=== PATIENT | male | born 2000 | race Caucasian/White ===

== ENCOUNTER 2020-02-16 12:23 | Emergency (ER) | payer OTHER, MEDICAID, SELFPAY ==
[2020-02-16 12:38] VITALS: BP 106/58; PULSE 109; RESP 20; TEMP 36.6; O2SAT 100
[2020-02-16 13:01] LABS: Bacteria Urine None Seen; RBC Urine None Seen (0-5/HPF); WBC Urine None Seen (0-5/HPF)
[2020-02-16 13:03] LABS: Appearance Urine UA CLEAR; Bilirubin Urine UA NEGATIVE (NEGATIVE); Color Urine UA YELLOW; Glucose Urine UA NEGATIVE (Negative); Ketones Urine UA TRACE (NEGATIVE); Leukocyte Esterase Urine UA NEGATIVE (NEGATIVE); Nitrite Urine UA NEGATIVE (Negative); Occult Blood Urine UA NEGATIVE (Negative); Protein Urine UA 3+ (Negative); pH Urine UA 7.5 (4.5-8.0)
[2020-02-16 13:09] LABS: Culture Indicated Urine Cult Not Indicated; Mucus Urine 1+ (Negative); Ur Creatinine Normal (Normal); Ur Specific Gravity Normal (Normal); Urine Amphetamines Positive (Negative); Urine Cocaine Negative (Negative); Urine Methamphetamines Positive (Negative); Urine Opiates Positive (Negative); Urine THC Positive (Negative); Urine pH Normal (Normal)
[2020-02-16 13:10] LABS: Urine Barbiturates Negative (Negative); Urine Benzodiazepines Negative (Negative); Urine MDMA Negative (Negative); Urine Methadone Negative (Negative); Urine Oxycodone Negative (Negative); Urine Phencyclidine Negative (Negative); Urine Tricyclic Antidepressant Negative (Negative)
[2020-02-16 13:12] LABS: Add Manual Diff / Slide Review NO; Basophils Absolute Auto 100 /uL (0-100); Basophils Percent Auto 0.8 % (0-2); Eosinophils Absolute Auto 100 /uL (0-450); Eosinophils Percent Auto 0.8 % (2-4); Hematocrit 42.4 % (41-53); Hemoglobin 14.1 g/dL (13.5-17.5); Lymphocytes Absolute Auto 2100 /uL (1100-4500); Lymphocytes Percent Auto 30.4 % (25-40); Mean Corpuscular HGB Conc 33.2 % (30-36); Mean Corpuscular Hemoglobin 29.5 PG (26-34); Mean Corpuscular Volume 88.8 fL (80-100); Monocytes Absolute Auto 700 /uL (0-900); Monocytes Percent Auto 9.7 % (3-14); Neutrophils Absolute Auto 4100 /uL (1500-7000); Neutrophils Percent Auto 58.3 % (50-75); Platelet Count 257 X10^3/uL (150-400); Red Blood Cell Count 4.77 X10^6/uL (4.5-5.9); Red Cell Distribution Width 13.3 % (11.6-14.8)
[2020-02-16 13:18] LABS: Acetaminophen < 10 ug/mL (10-30); Alanine Aminotransferase 17 IU/L (<50); Albumin 4.3 g/dL (3.5-5.0); Albumin Globulin Ratio 1.8 (1.0-2.8); Alkaline Phosphatase 52 U/L (38-126); Aspartate Aminotransferase 22 IU/L (17-59); Bilirubin Total 0.3 mg/dL (0.2-1.3); Blood Urea Nitrogen 12 mg/dL (9-20); Calcium 9.3 mg/dL (8.4-10.2); Carbon Dioxide 27 mmol/L (22-32); Chloride 106 mmol/L (98-107); Estimated Glomerular Filt Rate > 60.0 mL/min (>60); Ethanol (ETOH) < 10 mg/dL; Globulin 2.4 g/dL (1.7-4.1); Glucose 102 mg/dL (70-100); HEMOLYSIS < 15 (0-50); Potassium 4.1 mmol/L (3.4-5.1); Salicylate < 1.0 mg/dL (<20); Sodium 142 mmol/L (137-145); Total Protein 6.7 g/dL (6.3-8.2)
[2020-02-16 13:35] LABS: Free T4, Direct Thyroxine 0.95 ng/dL (0.78-2.19)
[2020-02-16 13:49] LABS: Thyroid Stimulating Hormone 0.315 uIU/mL (0.47-4.68)
[2020-02-16 14:45] VITALS: BP 117/72; PULSE 95; O2SAT 100
--- NOTE | 2020-02-16 16:21 | ED_ITS ---
HPI - Medical Clearance <Reza NunezALVARO Haines - Last Filed: 02/17/20 00:46> General Chief complaint: Medical Clearance Stated complaint: Clearance For Detox Time Seen by Provider: 02/16/20 15:24 Source: patient Mode of arrival: Ambulatory Limitations: no limitations History of Present Illness HPI Narrative: This is a 19-year-old male, smoker, who has history of addiction for substance use and requesting medical clearance before going into [facility] facility. Patient reports he has been using meth and heroin by smoking for about a year. Last use of meth and heroin 2 days ago. Patient reports this is his 3rd time trying detox. He states no certain motivator for this time and it's time to quit. Patient reports he has confirmed bed availability at [facility] and his father will take him there. Patient denies suicidal ideation or attempts. Patient denies recent travel or exposure to Covid illness and reports he has been quarantined himself at home. Patient denies history of other mental illnesses. Patient denies cough, sore throat, runny nose, chest pain, nausea/vomiting/diarrhea. Related Information Previous Rx's Medication Instructions Recorded ondansetron HCl [Zofran] 4 mg PO Q6H PRN #14 tab 02/17/20 Allergies Allergy/AdvReac Type Severity Reaction Status Date / Time No Known Drug Allergies Allergy Verified 02/16/20 12:41 Review of Systems <Reza NunezNateBenyALVARO velasquez - Last Filed: 02/17/20 00:46> Review of Systems Narrative: General: Denies fever, chills, fatigue, malaise, sweats. HEENT: Denies sinus pain, ear pain, sore throat, difficulty swallowing, dizziness. Respiratory: Denies dyspnea, cough, wheezing, hemoptysis, sputum. Cardiovascular: Denies chest pain, palpitations, orthopnea, edema. Gastrointestinal: Denies nausea, vomiting, abdominal pain, diarrhea, constipation, melena. : Denies dysuria, frequency, incontinence, hematuria, urinary retention. Musculoskeletal: Denies weakness, joint pain or bony pain. Skin: Denies rash, skin lesions, or other. Neurologic: Denies weakness, headache, numbness, change in speech, confusion, seizures, incoordination. Psychiatric: No concerning psychosocial issues. 12-point review of systems is negative except for those stated above. Patient History <ALVARO Evans - Last Filed: 02/17/20 00:46> Medical History (Updated 03/02/20 @ 00:00 by ) Substance addiction (Inactive) Social History Smoking Status: Current every day smoker Smoking Status: Current every day smoker tobacco type: cigarettes alcohol intake frequency: 0-2 drinks per day Substance Use Type: heroin and methamphetamine Exam <ALVARO Evans - Last Filed: 02/17/20 00:46> Narrative Exam Narrative: GEN: Alert, oriented x 3, thin appearing and in no acute distress. Sleeping soundly but arouse easily by verbal command. Head: Normal cephalic, atraumatic. No scalp or temporal tenderness, palpable mass or rash. EYES: Pupils are equal, round, and reactive to light and accommodation. Extraocular muscles are intact bilaterally. There is no subconjunctival hemorrhage, exudate and sclera non-icteric. ENT: Hearing grossly intact. Mucous membrane moist, no mucosal lesion. Throat without erythema, tonsillar hypertrophy or exudate. Uvula in midline, airway patent. Neck: Trachea in midline. No JVD, non-tender without lymphadenopathy. No masses or thyroid megaly. Supple, non-tender and no meningeal signs. CARDIAC: Normal regular rate and rhythm without murmurs, gallops, or rubs. No chest wall tenderness. No peripheral edema, cyanosis or pallor. Capillary refill is less than 2 seconds. RESPIRATORY: Lungs are clear to auscultate bilaterally. No cough, wheezes, rales, or rhonchi. No stridor, respiratory distress, increase work of breathing, or accessary muscle used. ABD: Abdomen soft, nontender and non-distended. No guarding or rebound tenderness to palpate. Bowel sounds are normal in all 4 quadrants. There is no palpable masses or organomegaly. EXT: Full painless ROM of all extremities with no loss of sensation, strength, effusion or edema. SKIN: Warm, dry, normal color for patient. No erythema, lesions or rash over visible areas. BACK: Nontender without deformity or crepitance. No flank tenderness. NEUROLOGICAL: Alert and oriented to place, time and person. Sensation and motor function intact bilaterally. No facial droops, dysphasia. PSYCHIATRIC: Good judgement and reason, without hallucinations, abnormal affect or abnormal behaviors during the examination. Patient is not suicidal. Initial Vital Signs Initial Vital Signs: Vital Signs Temperature 97.8 F 02/16/20 12:38 Pulse Rate 109 H 02/16/20 12:38 Respiratory Rate 02/16/20 12:38 Blood Pressure 106/58 L 02/16/20 12:38 Pulse Oximetry 100 02/16/20 12:38 <Fabián Calix MD - Last Filed: 03/02/20 09:08> Initial Vital Signs Initial Vital Signs: Vital Signs Temperature 97.8 F 02/16/20 12:38 Pulse Rate 109 H 02/16/20 12:38 Respiratory Rate 02/16/20 12:38 Blood Pressure 106/58 L 02/16/20 12:38 Pulse Oximetry 100 02/16/20 12:38 Scores <ALVARO Evans - Last Filed: 02/17/20 00:46> GCS Sutherland coma scale eye opening: Spontaneous Wendy coma scale verbal response: Orientated [place] coma scale motor response: Obey commands Sutherland coma scale total score: 15 MDM - Medical Clearance <ALVARO Evans - Last Filed: 02/17/20 00:46> Differential Diagnosis Differential diagnosis: Likely other (Medical screening and clearance) Medical Records Attestation: I reviewed the patient's medical records. Lab Data Attestation: I reviewed the patient's lab results. Result diagrams: 02/16/20 12:55 02/16/20 12:55 Labs: Lab Results 02/16/20 02/16/20 02/16/20 Range/Units 12:45 12:45 12:55 WBC 7.0 (4.5-11.0) X10^3/uL RBC 4.77 (4.5-5.9) X10^6/uL Hgb 14.1 (13.5-17.5) g/dL Hct 42.4 (41-53) % MCV 88.8 (80-100) fL MCH 29.5 (26-34) PG MCHC 33.2 (30-36) % RDW 13.3 (11.6-14.8) % Plt Count 257 (150-400) X10^3/uL Neut % (Auto) 58.3 (50-75) % Lymph % (Auto) 30.4 (25-40) % [place] % (Auto) 9.7 (3-14) % Eos % (Auto) 0.8 L (2-4) % Baso % (Auto) 0.8 (0-2) % Neut # (Auto) 4100 (6167-9429) /uL Lymph # (Auto) 2100 (8706-7915) /uL [place] # (Auto) 700 (0-900) /uL Eos # (Auto) 100 (0-450) /uL Baso # (Auto) 100 (0-100) /uL Sodium (137-145) mmol/L Potassium (3.4-5.1) mmol/L Chloride (98-107) mmol/L Carbon Dioxide (22-32) mmol/L BUN (9-20) mg/dL Creatinine (0.66-1.25) mg/dL Estimated GFR (>60) mL/min BUN/Creatinine Ratio (6-22) Glucose (70-100) mg/dL Calcium (8.4-10.2) mg/dL Total Bilirubin (0.2-1.3) mg/dL AST (17-59) IU/L ALT (<50) IU/L Alkaline Phosphatase (38-126) U/L Total Protein (6.3-8.2) g/dL Albumin (3.5-5.0) g/dL Globulin (1.7-4.1) g/dL Albumin/Globulin Ratio (1.0-2.8) TSH (0.47-4.68) uIU/mL Free T4 (0.78-2.19) ng/dL Urine Color Yellow Urine Appearance Clear Urine pH 7.5 (4.5-8.0) Ur Specific [place] Level 1.020 (1.000-1.035) Urine Protein 3+ H (Negative) Urine Glucose (UA) Negative (Negative) g/dL Urine Ketones Trace H (NEGATIVE) Urine Occult Blood Negative (Negative) Urine Nitrate Negative (Negative) Urine Bilirubin Negative (NEGATIVE) Urine Urobilinogen 1.0 (0.2) E.U./dL Ur Leukocyte Esterase Negative (NEGATIVE) Urine RBC None seen (0-5/HPF) Urine WBC None seen (0-5/HPF) Urine Bacteria None seen (None) Urine Mucus 1+ H (Negative) Ur Culture Indicated? Cult not indicated Salicylates (<20) mg/dL U Opiates 300ng/mL cut Positive H (Negative) Ur Oxycodone Screen Negative (Negative) Urine Methadone Screen Negative (Negative) Acetaminophen (10-30) ug/mL Ur Barbiturates Screen Negative (Negative) U Tricyclic Antidepress Negative (Negative) Ur Phencyclidine Scrn Negative (Negative) Ur Amphetamines Screen Positive H (Negative) U Methamphetamines Scrn Positive H (Negative) Ur MDMA Scrn (Ecstasy) Negative (Negative) U Benzodiazepines Scrn Negative (Negative) Urine Cocaine Screen Negative (Negative) U Marijuana (THC) Screen Positive H (Negative) Ethyl Alcohol ( - 10) mg/dL 02/16/20 02/16/20 Range/Units 12:55 12:55 WBC (4.5-11.0) X10^3/uL RBC (4.5-5.9) X10^6/uL Hgb (13.5-17.5) g/dL Hct (41-53) % MCV (80-100) fL MCH (26-34) PG MCHC (30-36) % RDW (11.6-14.8) % Plt Count (150-400) X10^3/uL Neut % (Auto) (50-75) % Lymph % (Auto) (25-40) % [place] % (Auto) (3-14) % Eos % (Auto) (2-4) % Baso % (Auto) (0-2) % Neut # (Auto) (9404-7444) /uL Lymph # (Auto) (7831-4697) /uL [place] # (Auto) (0-900) /uL Eos # (Auto) (0-450) /uL Baso # (Auto) (0-100) /uL Sodium 142 (137-145) mmol/L Potassium 4.1 (3.4-5.1) mmol/L Chloride 106 (98-107) mmol/L Carbon Dioxide 27 (22-32) mmol/L BUN 12 (9-20) mg/dL Creatinine 0.86 (0.66-1.25) mg/dL Estimated GFR > 60.0 (>60) mL/min BUN/Creatinine Ratio 14.0 (6-22) Glucose 102 H (70-100) mg/dL Calcium 9.3 (8.4-10.2) mg/dL Total Bilirubin 0.3 (0.2-1.3) mg/dL AST 22 (17-59) IU/L ALT 17 (<50) IU/L Alkaline Phosphatase 52 (38-126) U/L Total Protein 6.7 (6.3-8.2) g/dL Albumin 4.3 (3.5-5.0) g/dL Globulin 2.4 (1.7-4.1) g/dL Albumin/Globulin Ratio 1.8 (1.0-2.8) TSH 0.315 L (0.47-4.68) uIU/mL Free T4 0.95 (0.78-2.19) ng/dL Urine Color Urine Appearance Urine pH (4.5-8.0) Ur Specific [place] Level (1.000-1.035) Urine Protein (Negative) Urine Glucose (UA) (Negative) g/dL Urine Ketones (NEGATIVE) Urine Occult Blood (Negative) Urine Nitrate (Negative) Urine Bilirubin (NEGATIVE) Urine Urobilinogen (0.2) E.U./dL Ur Leukocyte Esterase (NEGATIVE) Urine RBC (0-5/HPF) Urine WBC (0-5/HPF) Urine Bacteria (None) Urine Mucus (Negative) Ur Culture Indicated? Salicylates < 1.0 (<20) mg/dL U Opiates 300ng/mL cut (Negative) Ur Oxycodone Screen (Negative) Urine Methadone Screen (Negative) Acetaminophen < 10 L (10-30) ug/mL Ur Barbiturates Screen (Negative) U Tricyclic Antidepress (Negative) Ur Phencyclidine Scrn (Negative) Ur Amphetamines Screen (Negative) U Methamphetamines Scrn (Negative) Ur MDMA Scrn (Ecstasy) (Negative) U Benzodiazepines Scrn (Negative) Urine Cocaine Screen (Negative) U Marijuana (THC) Screen (Negative) Ethyl Alcohol < 10 ( - 10) mg/dL MDM Narrative Medical decision making narrative: This is a 19-year-old male who presents to ED in request for medical clearance and screening before going into [facility] detox facility for meth and heroin use. Patient denies any concerning symptoms including chest pain, dyspnea, nausea vomiting, cough, or other Covid symptoms. Patient reports had used meth and heroin 2 days ago by smoking. History of substance addiction for 1 year. This is his 3rd trial for rehab. Patient is medically cleared with unremarkable lab test. UDS shows positive for opiates voids,, methamphetamines, and THC. Patient denies suicidal ideation or attempts in the past. He has been cooperative and calm in ED. He is medically cleared to go to rehab facility. Availability was confirmed by nursing staff. Patient is accepted by [facility] detox facility and he is released to his parents. <Fabián Calix MD - Last Filed: 03/02/20 09:08> Lab Data Labs: Lab Results 02/16/20 02/16/20 02/16/20 Range/Units 12:45 12:45 12:55 WBC 7.0 (4.5-11.0) X10^3/uL RBC 4.77 (4.5-5.9) X10^6/uL Hgb 14.1 (13.5-17.5) g/dL Hct 42.4 (41-53) % MCV 88.8 (80-100) fL MCH 29.5 (26-34) PG MCHC 33.2 (30-36) % RDW 13.3 (11.6-14.8) % Plt Count 257 (150-400) X10^3/uL Neut % (Auto) 58.3 (50-75) % Lymph % (Auto) 30.4 (25-40) % [place] % (Auto) 9.7 (3-14) % Eos % (Auto) 0.8 L (2-4) % Baso % (Auto) 0.8 (0-2) % Neut # (Auto) 4100 (0379-0734) /uL Lymph # (Auto) 2100 (2529-9982) /uL [place] # (Auto) 700 (0-900) /uL Eos # (Auto) 100 (0-450) /uL Baso # (Auto) 100 (0-100) /uL Sodium (137-145) mmol/L Potassium (3.4-5.1) mmol/L Chloride (98-107) mmol/L Carbon Dioxide (22-32) mmol/L BUN (9-20) mg/dL Creatinine (0.66-1.25) mg/dL Estimated GFR (>60) mL/min BUN/Creatinine Ratio (6-22) Glucose (70-100) mg/dL Calcium (8.4-10.2) mg/dL Total Bilirubin (0.2-1.3) mg/dL AST (17-59) IU/L ALT (<50) IU/L Alkaline Phosphatase (38-126) U/L Total Protein (6.3-8.2) g/dL Albumin (3.5-5.0) g/dL Globulin (1.7-4.1) g/dL Albumin/Globulin Ratio (1.0-2.8) TSH (0.47-4.68) uIU/mL Free T4 (0.78-2.19) ng/dL Urine Color Yellow Urine Appearance Clear Urine pH 7.5 (4.5-8.0) Ur Specific [place] Level 1.020 (1.000-1.035) Urine Protein 3+ H (Negative) Urine Glucose (UA) Negative (Negative) g/dL Urine Ketones Trace H (NEGATIVE) Urine Occult Blood Negative (Negative) Urine Nitrate Negative (Negative) Urine Bilirubin Negative (NEGATIVE) Urine Urobilinogen 1.0 (0.2) E.U./dL Ur Leukocyte Esterase Negative (NEGATIVE) Urine RBC None seen (0-5/HPF) Urine WBC None seen (0-5/HPF) Urine Bacteria None seen (None) Urine Mucus 1+ H (Negative) Ur Culture Indicated? Cult not indicated Salicylates (<20) mg/dL U Opiates 300ng/mL cut Positive H (Negative) Ur Oxycodone Screen Negative (Negative) Urine Methadone Screen Negative (Negative) Acetaminophen (10-30) ug/mL Ur Barbiturates Screen Negative (Negative) U Tricyclic Antidepress Negative (Negative) Ur Phencyclidine Scrn Negative (Negative) Ur Amphetamines Screen Positive H (Negative) U Methamphetamines Scrn Positive H (Negative) Ur MDMA Scrn (Ecstasy) Negative (Negative) U Benzodiazepines Scrn Negative (Negative) Urine Cocaine Screen Negative (Negative) U Marijuana (THC) Screen Positive H (Negative) Ethyl Alcohol ( - 10) mg/dL 02/16/20 02/16/20 Range/Units 12:55 12:55 WBC (4.5-11.0) X10^3/uL RBC (4.5-5.9) X10^6/uL Hgb (13.5-17.5) g/dL Hct (41-53) % MCV (80-100) fL MCH (26-34) PG MCHC (30-36) % RDW (11.6-14.8) % Plt Count (150-400) X10^3/uL Neut % (Auto) (50-75) % Lymph % (Auto) (25-40) % [place] % (Auto) (3-14) % Eos % (Auto) (2-4) % Baso % (Auto) (0-2) % Neut # (Auto) (1918-1292) /uL Lymph # (Auto) (8414-3642) /uL [place] # (Auto) (0-900) /uL Eos # (Auto) (0-450) /uL Baso # (Auto) (0-100) /uL Sodium 142 (137-145) mmol/L Potassium 4.1 (3.4-5.1) mmol/L Chloride 106 (98-107) mmol/L Carbon Dioxide 27 (22-32) mmol/L BUN 12 (9-20) mg/dL Creatinine 0.86 (0.66-1.25) mg/dL Estimated GFR > 60.0 (>60) mL/min BUN/Creatinine Ratio 14.0 (6-22) Glucose 102 H (70-100) mg/dL Calcium 9.3 (8.4-10.2) mg/dL Total Bilirubin 0.3 (0.2-1.3) mg/dL AST 22 (17-59) IU/L ALT 17 (<50) IU/L Alkaline Phosphatase 52 (38-126) U/L Total Protein 6.7 (6.3-8.2) g/dL Albumin 4.3 (3.5-5.0) g/dL Globulin 2.4 (1.7-4.1) g/dL Albumin/Globulin Ratio 1.8 (1.0-2.8) TSH 0.315 L (0.47-4.68) uIU/mL Free T4 0.95 (0.78-2.19) ng/dL Urine Color Urine Appearance Urine pH (4.5-8.0) Ur Specific [place] Level (1.000-1.035) Urine Protein (Negative) Urine Glucose (UA) (Negative) g/dL Urine Ketones (NEGATIVE) Urine Occult Blood (Negative) Urine Nitrate (Negative) Urine Bilirubin (NEGATIVE) Urine Urobilinogen (0.2) E.U./dL Ur Leukocyte Esterase (NEGATIVE) Urine RBC (0-5/HPF) Urine WBC (0-5/HPF) Urine Bacteria (None) Urine Mucus (Negative) Ur Culture Indicated? Salicylates < 1.0 (<20) mg/dL U Opiates 300ng/mL cut (Negative) Ur Oxycodone Screen (Negative) Urine Methadone Screen (Negative) Acetaminophen < 10 L (10-30) ug/mL Ur Barbiturates Screen (Negative) U Tricyclic Antidepress (Negative) Ur Phencyclidine Scrn (Negative) Ur Amphetamines Screen (Negative) U Methamphetamines Scrn (Negative) Ur MDMA Scrn (Ecstasy) (Negative) U Benzodiazepines Scrn (Negative) Urine Cocaine Screen (Negative) U Marijuana (THC) Screen (Negative) Ethyl Alcohol < 10 ( - 10) mg/dL Discharge Plan Departure Patient Disposition: Home Clinical Impression: Substance addiction Discharge Date/Time: 02/16/20 17:21 Instructions: Getting Treatment for Substance Use Disorder, DI for Substance Use Disorder Activity Restrictions/Additional Instructions: You have been diagnosed with [encounter for medical clearance before going to detox clinic from using meth and heroin by smoking.]. What to do: *Take your medications as directed. No new medications today. *Follow up with your primary care provider in 2-3 days, call for an appointment. Let them know you were seen in the ED and that we asked you to be seen in follow up. *Return to ED if you have any new, worsening, or concerning symptoms, such as [chest pain, breathing difficulty, unable to tolerate fluids, unusual behavior, seizure activities, fever or any acute concerns]. Prescriptions: No Action ondansetron HCl [Zofran] 4 mg tablet 4 mg PO Q6H PRN (Reason: nausea and vomiting) Qty: 14 RF: 0 Referrals: Chaz Hatfield MD [Primary Care Provider] -
[2020-02-16 16:44] VITALS: BP 113/72; PULSE 94; O2SAT 100
[2020-02-16 17:18] VITALS: BP 113/72; PULSE 93; RESP 12; O2SAT 100
== END 2020-02-16 17:21 | disposition home or self-care (01) ==
PROVIDERS: Emergency Medicine; Emergency Provider Nurse Practitioner Family; PCP Family Medicine
DX: F11.20 Opioid dependence, uncomplicated (principal)
CPT/HCPCS: 80053; 80305; 80320; 80329; 81001; 84439; 84443; 85025; 99283; G0480

== ENCOUNTER 2020-02-17 21:33 | Emergency (ER) | payer OTHER, MEDICAID, SELFPAY ==
[2020-02-17] MEDS: SODIUM CHLORIDE 0.9% 1,000 ML 1000 ML IV (21:35)
[2020-02-17 21:36] VITALS: BP 118/66; PULSE 109; RESP 20; TEMP 36.1; O2SAT 98
[2020-02-17 22:13] LABS: Add Manual Diff / Slide Review NO; Basophils Absolute Auto 100 /uL (0-100); Basophils Percent Auto 0.5 % (0-2); Eosinophils Absolute Auto 0 /uL (0-450); Eosinophils Percent Auto 0.1 % (2-4); Hematocrit 46.7 % (41-53); Hemoglobin 15.5 g/dL (13.5-17.5); Lymphocytes Absolute Auto 2300 /uL (1100-4500); Lymphocytes Percent Auto 21.6 % (25-40); Mean Corpuscular HGB Conc 33.3 % (30-36); Mean Corpuscular Hemoglobin 29.3 PG (26-34); Monocytes Absolute Auto 800 /uL (0-900); Monocytes Percent Auto 7.9 % (3-14); Neutrophils Absolute Auto 7500 /uL (1500-7000); Neutrophils Percent Auto 69.9 % (50-75); Platelet Count 298 X10^3/uL (150-400); Red Cell Distribution Width 13.5 % (11.6-14.8); White Blood Cell Count 10.7 X10^3/uL (4.5-11.0)
[2020-02-17 22:19] LABS: BUN Creatinine Ratio 13.4 (6-22); Blood Urea Nitrogen 11 mg/dL (9-20); Calcium 9.9 mg/dL (8.4-10.2); Carbon Dioxide 32 mmol/L (22-32); Chloride 102 mmol/L (98-107); Estimated Glomerular Filt Rate > 60.0 mL/min (>60); Glucose 122 mg/dL (70-100); HEMOLYSIS < 15 (0-50); Potassium 3.3 mmol/L (3.4-5.1); Sodium 143 mmol/L (137-145)
[2020-02-17] MEDS: ONDANSETRON 4 MG/2 ML INJ IV (22:39)
--- NOTE | 2020-02-17 22:45 | ED.NAVMDI ---
HPI - Nausea/Vomiting/Diarrhea General Chief complaint: Nausea/Vomiting/Diarrhea Stated complaint: Vomiting Time Seen by Provider: 02/17/20 21:42 Source: patient and family (Father) Mode of arrival: Ambulatory Limitations: no limitations History of Present Illness HPI Narrative: Patient is a 19-year-old male. Admits to be a attic to both methamphetamine and heroin. His last use of heroin was 4 days ago. He is here with his father for evaluation of heroin withdrawal to include nausea and vomiting. Last time the patient was in this emergency department he was transferred to a detox facility where the patient left approximately 24 hours after arrival. He is here today to ?get my electrolytes checked and get fluid ?he is not interested in further inpatient/outpatient treatment. Related Data Previous Rx's Medication Instructions Recorded ondansetron HCl [Zofran] 4 mg PO Q6H PRN #14 tab 02/17/20 Allergies Allergy/AdvReac Type Severity Reaction Status Date / Time No Known Drug Allergies Allergy Verified 02/16/20 12:41 Review of Systems Constitutional Constitutional: Reports fatigue and Denies fever(s) Cardiovascular Cardiovascular: Denies chest pain and Denies dyspnea Respiratory Respiratory: Denies dyspnea Gastrointestinal Gastrointestinal: Reports nausea and Reports vomiting Musculoskeletal Musculoskeletal: Reports myalgias Integumentary/Breasts Skin/Breast: Denies rash Neurologic Neurologic: Denies behavioral changes Psychiatric Psychiatric: Denies behavioral changes Endocrine Endocrine: Reports fatigue Hematologic/Lymphatic Hematologic/Lymphatic: Denies easy bleeding and Denies easy bruising Patient History Medical History Substance addiction (Inactive) Social History Smoking Status: Current every day smoker Smoking Status: Current every day smoker tobacco type: cigarettes alcohol intake frequency: 0-2 drinks per day Substance Use Type: heroin and methamphetamine Exam Initial Vital Signs Initial Vital Signs: Vital Signs Temperature 97 F L 02/17/20 21:36 Pulse Rate 109 H 02/17/20 21:36 Respiratory Rate 20 02/17/20 21:36 Blood Pressure 118/66 02/17/20 21:36 Pulse Oximetry 98 02/17/20 21:36 Const General: cooperative Limitations: mental status not altered Resp Effort & Inspection: normal respiratory effort Cardio Rate: tachycardic Skin Lesions: no lesions Neuro General: patient alert, patient awake and patient oriented x3 Psych Appearance: grossly normal and well kempt Course Orders Ordered: ED Orders 02/17/20 21:50 Basic Metabolic Panel Stat Complete Blood Count AUTO DIFF Stat Discontinued Medications Sodium Chloride (Normal Saline 0.9%) 1,000 mls @ 1,000 mls/hr IV BOLUS ONE Stop: 02/17/20 22:42 Last Infusion: 02/17/20 22:39 Dose: 0 mls/hr Documented by: Admin: 02/17/20 21:35 Dose: 1,000 mls/hr Documented by: WILMAN Ondansetron HCl (Zofran) 4 mg IV NOW ONE Stop: 02/17/20 21:44 Last Admin: 02/17/20 22:39 Dose: 4 mg Documented by: WILMAN Ondansetron HCl (Zofran Odt Prepack) 1 bottle MISC SEEINSTR ONE Stop: 02/17/20 22:42 Last Admin: 02/17/20 22:48 Dose: 1 bottle Documented by: WILMAN Vital Signs Vital signs: Vital Signs - 8 hr 02/17/20 21:36 Temperature 97 F L Pulse Rate 109 H Respiratory Rate 20 Blood Pressure 118/66 Pulse Oximetry 98 MDM - Nausea/Vomiting/Diarrhea Lab Data Attestation: I reviewed the patient's lab results. Result diagrams: 02/17/20 21:50 02/17/20 21:50 Labs: Lab Results 02/17/20 02/17/20 Range/Units 21:50 21:50 WBC 10.7 D (4.5-11.0) X10^3/uL RBC 5.30 (4.5-5.9) X10^6/uL Hgb 15.5 (13.5-17.5) g/dL Hct 46.7 (41-53) % MCV 88.0 (80-100) fL MCH 29.3 (26-34) PG MCHC 33.3 (30-36) % RDW 13.5 (11.6-14.8) % Plt Count 298 (150-400) X10^3/uL Neut % (Auto) 69.9 (50-75) % Lymph % (Auto) 21.6 L (25-40) % [place] % (Auto) 7.9 (3-14) % Eos % (Auto) 0.1 L (2-4) % Baso % (Auto) 0.5 (0-2) % Neut # (Auto) 7500 H (0412-0647) /uL Lymph # (Auto) 2300 (6155-9362) /uL [place] # (Auto) 800 (0-900) /uL Eos # (Auto) 0 (0-450) /uL Baso # (Auto) 100 (0-100) /uL Sodium 143 (137-145) mmol/L Potassium 3.3 L (3.4-5.1) mmol/L Chloride 102 (98-107) mmol/L Carbon Dioxide 32 (22-32) mmol/L BUN 11 (9-20) mg/dL Creatinine 0.82 (0.66-1.25) mg/dL Estimated GFR > 60.0 (>60) mL/min BUN/Creatinine Ratio 13.4 (6-22) Glucose 122 H (70-100) mg/dL Calcium 9.9 (8.4-10.2) mg/dL MDM Narrative Medical decision making narrative: Electrolytes unremarkable, fluids were administered. Patient feels better after Zofran. Will send home with Zofran. Again patient states that he does not want inpatient treatment. His father was at bedside for these discussions and the patient be discharged with his father. He was provided encouragement in and told to return to the emergency department for any new or worsening symptoms. He expressed understanding and agreement. Discharge Plan Departure Patient Disposition: Home Clinical Impression: Heroin withdrawal Nausea and vomiting Qualifiers: Vomiting type: unspecified Vomiting Intractability: unspecified Qualified Code(s): R11.2 - Nausea with vomiting, unspecified Discharge Date/Time: 02/17/20 22:53 Instructions: DI for Drug or Alcohol Withdrawal Activity Restrictions/Additional Instructions: Take the Zofran as needed for the nausea and vomiting. Be sure that you increase your fluid intake by drinking small amounts of fluid over longer periods of time. I would suspect that within the next couple days your symptoms should significantly improve. I encourage you to continue to stick through this time. Things will get better. Prescriptions: New ondansetron HCl [Zofran] 4 mg tablet 4 mg PO Q6H PRN (Reason: nausea and vomiting) Qty: 14 RF: 0 Referrals: Chaz Hatfield MD [Primary Care Provider] -
[2020-02-17] MEDS: ONDANSETRON 4 MG ODT PREPACK 1 BOTTLE MISC (22:48)
== END 2020-02-17 22:53 | disposition home or self-care (01) ==
PROVIDERS: Emergency Provider Emergency Medicine; PCP Family Medicine
DX: F11.23 Opioid dependence with withdrawal (principal); R11.2 Nausea with vomiting, unspecified
CPT/HCPCS: 36415; 80048; 85025; 96361; 96374; 99284; J2405

== ENCOUNTER 2020-02-19 16:02 | Emergency (ER) | payer OTHER, MEDICAID, SELFPAY ==
[2020-02-19 16:13] VITALS: BP 126/73; PULSE 121; RESP 20; TEMP 36.6; O2SAT 98; BMI 20.3
--- NOTE | 2020-02-19 17:48 | PC.NURSE ---
Attempted to bring pt back to ED,unable to locate pt. He is not in the lobby, the bathroom or outside. Staff at front door stated that him and another man left approx 5 minutes ago
--- NOTE | 2020-02-19 17:51 | PC.NURSE ---
patient is withdrawing from heroin since the past weekend, pt continues having nausea and vomiting. would like a shot of zofran instead of odt. provided ice chips while in the waiting room.
--- NOTE | 2020-02-19 18:18 | PC.NURSE ---
Attempted to find pt in lobby
== END 2020-02-19 18:19 | disposition left against medical advice (07) ==
PROVIDERS: Emergency Provider Emergency Medicine; PCP Family Medicine
CPT/HCPCS: 99282

== ENCOUNTER 2022-03-27 11:08 | Emergency (ER) | payer OTHER, MEDICAID, SELFPAY ==
[2022-03-27 11:44] VITALS: BP 136/60; PULSE 84; RESP 14; TEMP 36.7; O2SAT 97; BMI 22.4
--- NOTE | 2022-03-27 11:59 | DI.RAD.S_ITS ---
PROCEDURE: XR CHEST 1V INDICATIONS: chest pain TECHNIQUE: One view of the chest was acquired. COMPARISON: [facility], , CHEST 2 VIEW, 08/21/2016, 15:14. FINDINGS: Surgical changes and devices: None. Lungs and pleura: Lungs are clear. No pleural effusions or pneumothorax. Mediastinum: Mediastinal contours appear normal. Heart size is normal. Bones and chest wall: No suspicious bony lesions. Overlying soft tissues appear unremarkable. IMPRESSION: No acute cardiopulmonary abnormality. Dictated by: Luiz Gonzalez M.D. on 03/27/2022 at 12:35 Approved by: Luiz Gonzalez M.D. on 03/27/2022 at 12:36
[2022-03-27 12:36] LABS: Add Manual Diff / Slide Review NO; Basophils Absolute Auto 100 /uL (0-100); Basophils Percent Auto 1.1 % (0-2); Eosinophils Absolute Auto 100 /uL (0-450); Eosinophils Percent Auto 1.9 % (2-4); Hematocrit 37.8 % (41-53); Hemoglobin 12.8 g/dL (13.5-17.5); Lymphocytes Absolute Auto 2900 /uL (1100-4500); Lymphocytes Percent Auto 39.6 % (25-40); Mean Corpuscular HGB Conc 33.8 % (30-36); Mean Corpuscular Hemoglobin 29.9 PG (26-34); Mean Corpuscular Volume 88.4 fL (80-100); Monocytes Absolute Auto 700 /uL (0-900); Neutrophils Absolute Auto 3500 /uL (1500-7000); Neutrophils Percent Auto 47.4 % (50-75); Platelet Count 265 X10^3/uL (150-400); Red Blood Cell Count 4.27 X10^6/uL (4.5-5.9); White Blood Cell Count 7.4 X10^3/uL (4.5-11.0)
--- NOTE | 2022-03-27 12:51 | ED_ITS ---
HPI - Extremity Problem <ALVARO Torres - Last Filed: 03/27/22 18:40> General Chief complaint: Extremity Problem,Nontraumatic Stated complaint: swelling in ankles, feet history of meth use Time Seen by Provider: 03/27/22 12:07 Source: patient Mode of arrival: Ambulatory History of Present Illness HPI Narrative: This is a 21-year-old male presents to emergency department with concern about the intermittent swelling his bilateral lower extremities related to methamphetamine and heroin use. Reports that he relapsed noticed that his lower extremities were swollen after sleeping in the recliner. Denies any chest pain, shortness of breath, palpitations or racing heart at rest. He states he has palpitations only when he uses drugs. He denies recent fever chills, denies nausea or vomiting, denies any lightheadedness, syncope, history of high fevers or significant infection needing the hospital. Related Data Previous Rx's Medication Instructions Recorded ondansetron HCl 4 mg tablet 4 mg PO Q6H PRN nausea and 02/17/20 (Zofran) vomiting #14 tabs furosemide 20 mg tablet (Lasix) 20 mg PO QAM PRN swelling #10 tabs 03/27/22 Allergies Allergy/AdvReac Type Severity Reaction Status Date / Time No Known Drug Allergies Allergy Verified 03/27/22 11:49 Review of Systems <ALVARO Torres - Last Filed: 03/27/22 18:40> Review of Systems Narrative: Review of systems is negative for acute abnormalities unless otherwise noted in HPI Patient History <ALVARO Torres - Last Filed: 03/27/22 18:40> Medical History (Updated 03/27/22 @ 13:24 by ALVARO Torres) Substance addiction Social History Smoking Status: Current every day smoker Smoking Status: Current every day smoker tobacco type: cigarettes alcohol intake frequency: 0-2 drinks per day Substance Use Type: crack/cocaine, heroin and methamphetamine Exam <ALVARO Torres - Last Filed: 03/27/22 18:40> Narrative Exam Narrative: Reviewed vitals signs and nursing notes. General: cooperative, comfortable, in no acute distress, well groomed HEENT: symmetrical facial expressions, moist mucous membranes Cardiovascular: regular rate and rhythm, mild bilateral lower extremity peripheral edema notable above his sock line, warm extremities Respiratory: normal effort, able to speak in complete sentences, without wheezing, stridor, or abnormal breath sounds. No retractions or tachypnea. GI: abdomen soft, nontender to palpation, nondistended, without masses, rebound tenderness or exquisite tenderness with exam. MSK: moves all extremities, neurovascularly intact, no weakness, normal tone Skin: brisk capillary refill, without pallor or erythema, no rash, wound, ecchymosis, or tenderness, mild lower extremity edema bilaterally, 0-+1 Neuro: normal speech and cognition, A&O x3, ambulatory, clear speech Psych: mental status is grossly normal, congruent mood, normal affect, pleasant and cooperative Initial Vital Signs Initial Vital Signs: Vital Signs Temperature 98.0 F 03/27/22 11:44 Pulse Rate 84 03/27/22 11:44 Respiratory Rate 14 03/27/22 11:44 Blood Pressure 136/60 03/27/22 11:44 Pulse Oximetry 97 03/27/22 11:44 Oxygen Delivery Method 03/27/22 11:44 <Ayah Velasquez DO - Last Filed: 03/28/22 19:47> Initial Vital Signs Initial Vital Signs: Vital Signs Temperature 98.0 F 03/27/22 11:44 Pulse Rate 84 03/27/22 11:44 Respiratory Rate 14 03/27/22 11:44 Blood Pressure 136/60 03/27/22 11:44 Pulse Oximetry 97 03/27/22 11:44 Oxygen Delivery Method 03/27/22 11:44 Scores <ALVARO Torres - Last Filed: 03/27/22 18:40> Wells' Criteria for DVT Active Cancer (Treatment within 6 months): No Bedridden recently >3 days or major surgery within 4 weeks: No Calf Swelling >3cm compared to other leg: No Collateral (nonvericose) superficial veins present: No Entire leg swollen: No Localized tenderness along the deep vein system: No Pitting edema, confined to symtomatic leg: No Paralysis, paresis, or recent plaster immobilization of ext: No Previously documented DVT: No Alternative dx to DVT as likely or more likely: No Wells' criteria for DVT: 0 <Ayah Velasquez DO - Last Filed: 03/28/22 19:47> Wells' Criteria for DVT Wells' criteria for DVT: 0 Course <ALVARO Torres - Last Filed: 03/27/22 18:40> Orders Ordered: Discontinued Medications Furosemide (Furosemide 20 Mg Tablet) 20 mg PO NOW ONE Stop: 03/27/22 13:28 Last Admin: 03/27/22 13:35 Dose: 20 mg Documented By: CTS Vital Signs Vital signs: Vital Signs - 8 hr 03/27/22 11:44 03/27/22 13:44 Temperature 98.0 F Pulse Rate 84 80 Respiratory Rate 14 16 Blood Pressure 136/60 136/74 Pulse Oximetry 97 97 Oxygen Delivery Method Room Air Room Air <Ayah Velasquez DO - Last Filed: 03/28/22 19:47> Orders Ordered: Discontinued Medications Furosemide (Furosemide 20 Mg Tablet) 20 mg PO NOW ONE Stop: 03/27/22 13:28 Last Admin: 03/27/22 13:35 Dose: 20 mg Documented By: CTS Vital Signs Vital signs: Vital Signs - 8 hr 03/27/22 11:44 03/27/22 13:44 Temperature 98.0 F Pulse Rate 84 80 Respiratory Rate 14 16 Blood Pressure 136/60 136/74 Pulse Oximetry 97 97 Oxygen Delivery Method Room Air Room Air MDM - Extremity (Nontraumatic) <ALVARO Torres - Last Filed: 03/27/22 18:40> Lab Data Result diagrams: 03/27/22 12:21 03/27/22 12:21 Labs: Lab Results 03/27/22 03/27/22 03/27/22 Range/Units 12:21 12:21 12:21 WBC 7.4 (4.5-11.0) X10^3/uL RBC 4.27 L (4.5-5.9) X10^6/uL Hgb 12.8 L (13.5-17.5) g/dL Hct 37.8 L (41-53) % MCV 88.4 (80-100) fL MCH 29.9 (26-34) PG MCHC 33.8 (30-36) % RDW 14.0 (11.6-14.8) % Plt Count 265 (150-400) X10^3/uL Neut % (Auto) 47.4 L (50-75) % Lymph % (Auto) 39.6 (25-40) % [place] % (Auto) 10.0 (3-14) % Eos % (Auto) 1.9 L (2-4) % Baso % (Auto) 1.1 (0-2) % Neut # (Auto) 3500 (3048-8828) /uL Lymph # (Auto) 2900 (6639-2918) /uL [place] # (Auto) 700 (0-900) /uL Eos # (Auto) 100 (0-450) /uL Baso # (Auto) 100 (0-100) /uL Sodium 136 L (137-145) mmol/L Potassium 4.0 (3.4-5.1) mmol/L Chloride 98 (98-107) mmol/L Carbon Dioxide 31 (22-32) mmol/L BUN 17 (9-20) mg/dL Creatinine 0.92 (0.66-1.25) mg/dL Estimated GFR > 60 (>60) mL/min BUN/Creatinine Ratio 18.5 (6-22) Glucose 101 H (70-100) mg/dL Lactate (0.7-2.1) mmol/L Calcium 9.1 (8.4-10.2) mg/dL Magnesium 1.9 (1.6-2.3) mg/dL Total Bilirubin 0.4 (0.2-1.3) mg/dL AST 71 H (17-59) IU/L ALT 83 H (<50) IU/L Alkaline Phosphatase 55 (38-126) U/L Total Creatine Kinase 241 H (55-170) U/L CK-MB (CK-2) 4.37 H (<2.37) ng/mL CK-MB (CK-2) Rel Index 1.8 (1.5-5.0) % Troponin I < 0.012 (0.01-0.034) ng/mL NT-Pro-B Natriuret Pep 557 H (<125) pg/mL Total Protein 6.8 (6.3-8.2) g/dL Albumin 4.3 (3.5-5.0) g/dL Globulin 2.5 (1.7-4.1) g/dL Albumin/Globulin Ratio 1.7 (1.0-2.8) Lipase 60 (23-300) U/L Serum VDRL (Non Reactive) Hepatitis C Antibody (NEGATIVE) s/c HIV 1&2 Ab/P24 Ag 4thGn (NEGATIVE) 03/27/22 03/27/22 03/27/22 Range/Units 12:21 12:27 12:48 WBC (4.5-11.0) X10^3/uL RBC (4.5-5.9) X10^6/uL Hgb (13.5-17.5) g/dL Hct (41-53) % MCV (80-100) fL MCH (26-34) PG MCHC (30-36) % RDW (11.6-14.8) % Plt Count (150-400) X10^3/uL Neut % (Auto) (50-75) % Lymph % (Auto) (25-40) % [place] % (Auto) (3-14) % Eos % (Auto) (2-4) % Baso % (Auto) (0-2) % Neut # (Auto) (5256-1123) /uL Lymph # (Auto) (1473-4668) /uL [place] # (Auto) (0-900) /uL Eos # (Auto) (0-450) /uL Baso # (Auto) (0-100) /uL Sodium (137-145) mmol/L Potassium (3.4-5.1) mmol/L Chloride (98-107) mmol/L Carbon Dioxide (22-32) mmol/L BUN (9-20) mg/dL Creatinine (0.66-1.25) mg/dL Estimated GFR (>60) mL/min BUN/Creatinine Ratio (6-22) Glucose (70-100) mg/dL Lactate 0.6 L (0.7-2.1) mmol/L Calcium (8.4-10.2) mg/dL Magnesium (1.6-2.3) mg/dL Total Bilirubin (0.2-1.3) mg/dL AST (17-59) IU/L ALT (<50) IU/L Alkaline Phosphatase (38-126) U/L Total Creatine Kinase (55-170) U/L CK-MB (CK-2) (<2.37) ng/mL CK-MB (CK-2) Rel Index (1.5-5.0) % Troponin I (0.01-0.034) ng/mL NT-Pro-B Natriuret Pep (<125) pg/mL Total Protein (6.3-8.2) g/dL Albumin (3.5-5.0) g/dL Globulin (1.7-4.1) g/dL Albumin/Globulin Ratio (1.0-2.8) Lipase (23-300) U/L Serum VDRL Non reactive (Non Reactive) Hepatitis C Antibody Negative (NEGATIVE) s/c HIV 1&2 Ab/P24 Ag 4thGn Negative (NEGATIVE) Imaging Data Chest x-ray: My Impression: Without cardiomegaly Radiologist's Impression: PROCEDURE:? XR CHEST 1V ? INDICATIONS:? chest pain ? TECHNIQUE:? One view of the chest was acquired.? ? COMPARISON:? [facility], , CHEST 2 VIEW, 08/21/2016, 15:14. ? FINDINGS:? ? Surgical changes and devices:? None.? ? Lungs and pleura:? Lungs are clear.? No pleural effusions or pneumothorax.? ? Mediastinum:? Mediastinal contours appear normal.? Heart size is normal.? ? Bones and chest wall:? No suspicious bony lesions.? Overlying soft tissues appear unremarkable.? ? IMPRESSION:? No acute cardiopulmonary abnormality. ? ? ? Dictated by: Luiz Gonzalez M.D. on 03/27/2022 at 12:35 ? ? Approved by: Luiz Gonzalez M.D. on 03/27/2022 at 12:36 ? ECG Data Interpretation: EKG independently reviewed by myself at 1235 reveals normal sinus rhythm at [67] bpm with regular axis and intervals. No STEMI, ST segment changes, arrhythmia, or acute ischemic changes. Borderline left atrial enlargement MDM Narrative Medical decision making narrative: This is a 21-year-old male who presents to the emergency department with concern about bilateral ankle edema related to methamphetamine and heroin use. Vision denies any recent fever or illness. He has mild lower extremity edema, notable when his sock is removed without erythema, wound, ecchymosis, or signs of vascular deficiency. PT and DP pulses bilaterally are 2+, cap refills brisk. No evidence of cellulitis. His lab work is significant for mild anemia with a hemoglobin of 12.8 and hematocrit 37.8 compared to his priors of 15.5/46.7 in 2020. Sodium of 136, creatinine of 0.92, lactate of 0.6, AST of 71 which is elevated from his prior of 22, ALT of 83, prior of 17 in 2020. His total CK was elevated to 241 and his CK-MB was 4.37, troponin was 0.012 with a elevated BNP of 557. Patient states that this has happened to him in the past regarding the swelling in his lower extremities. Denies any chest pain, tachycardia, his EKGs without any ST changes, arrhythmia, possible left atrial enlargement, chest x- ray is negative for cardiomegaly, focal opacity, pneumothorax or pleural effusions. His D-Dimer was not checked as screening tool in the lab is malfunctioning and not working today. Discussed these findings with the patient, he was given 20 mg of Lasix today, encouraged him to abstain from substance abuse, encouraged him to establish care with a primary care provider by calling the phone number listed on his discharge paperwork. Discussed his elevated transaminases which might be related to dehydration. Discussed checking patient's HIV, hepatitis and syphilis as patient has not had these tested and he participates in IV drug use. All of these labs are still pending, his HIV had resulted by the time I am charting this and that was negative. I gave patient a prescription of Lasix 20 mg to take for the next 3 days and encouraged him to improve his healthy habits and lifestyle, follow-up about this. Patient states understanding, states that he will follow-up and make an appointment for a primary care provider. Patient is appropriate and amenable to discharge home. Vital signs are stable on repeat examination is unremarkable. Patient has been informed of results. Patient has been given strict return to ER precautions for any new or worsening symptoms. Patient understands to follow up closely with outpatient providers as instructed. Patient understands plan and agrees to discharge home. All questions and concerns answered at this time. <Ayah Velasquez, DO - Last Filed: 03/28/22 19:47> Lab Data Labs: Lab Results 03/27/22 03/27/22 03/27/22 Range/Units 12:21 12:21 12:21 WBC 7.4 (4.5-11.0) X10^3/uL RBC 4.27 L (4.5-5.9) X10^6/uL Hgb 12.8 L (13.5-17.5) g/dL Hct 37.8 L (41-53) % MCV 88.4 (80-100) fL MCH 29.9 (26-34) PG MCHC 33.8 (30-36) % RDW 14.0 (11.6-14.8) % Plt Count 265 (150-400) X10^3/uL Neut % (Auto) 47.4 L (50-75) % Lymph % (Auto) 39.6 (25-40) % [place] % (Auto) 10.0 (3-14) % Eos % (Auto) 1.9 L (2-4) % Baso % (Auto) 1.1 (0-2) % Neut # (Auto) 3500 (6108-4127) /uL Lymph # (Auto) 2900 (4435-2414) /uL [place] # (Auto) 700 (0-900) /uL Eos # (Auto) 100 (0-450) /uL Baso # (Auto) 100 (0-100) /uL Sodium 136 L (137-145) mmol/L Potassium 4.0 (3.4-5.1) mmol/L Chloride 98 (98-107) mmol/L Carbon Dioxide 31 (22-32) mmol/L BUN 17 (9-20) mg/dL Creatinine 0.92 (0.66-1.25) mg/dL Estimated GFR > 60 (>60) mL/min BUN/Creatinine Ratio 18.5 (6-22) Glucose 101 H (70-100) mg/dL Lactate (0.7-2.1) mmol/L Calcium 9.1 (8.4-10.2) mg/dL Magnesium 1.9 (1.6-2.3) mg/dL Total Bilirubin 0.4 (0.2-1.3) mg/dL AST 71 H (17-59) IU/L ALT 83 H (<50) IU/L Alkaline Phosphatase 55 (38-126) U/L Total Creatine Kinase 241 H (55-170) U/L CK-MB (CK-2) 4.37 H (<2.37) ng/mL CK-MB (CK-2) Rel Index 1.8 (1.5-5.0) % Troponin I < 0.012 (0.01-0.034) ng/mL NT-Pro-B Natriuret Pep 557 H (<125) pg/mL Total Protein 6.8 (6.3-8.2) g/dL Albumin 4.3 (3.5-5.0) g/dL Globulin 2.5 (1.7-4.1) g/dL Albumin/Globulin Ratio 1.7 (1.0-2.8) Lipase 60 (23-300) U/L Serum VDRL (Non Reactive) Hepatitis C Antibody (NEGATIVE) s/c HIV 1&2 Ab/P24 Ag 4thGn (NEGATIVE) 03/27/22 03/27/22 03/27/22 Range/Units 12:21 12:27 12:48 WBC (4.5-11.0) X10^3/uL RBC (4.5-5.9) X10^6/uL Hgb (13.5-17.5) g/dL Hct (41-53) % MCV (80-100) fL MCH (26-34) PG MCHC (30-36) % RDW (11.6-14.8) % Plt Count (150-400) X10^3/uL Neut % (Auto) (50-75) % Lymph % (Auto) (25-40) % [place] % (Auto) (3-14) % Eos % (Auto) (2-4) % Baso % (Auto) (0-2) % Neut # (Auto) (2662-4845) /uL Lymph # (Auto) (6074-9632) /uL [place] # (Auto) (0-900) /uL Eos # (Auto) (0-450) /uL Baso # (Auto) (0-100) /uL Sodium (137-145) mmol/L Potassium (3.4-5.1) mmol/L Chloride (98-107) mmol/L Carbon Dioxide (22-32) mmol/L BUN (9-20) mg/dL Creatinine (0.66-1.25) mg/dL Estimated GFR (>60) mL/min BUN/Creatinine Ratio (6-22) Glucose (70-100) mg/dL Lactate 0.6 L (0.7-2.1) mmol/L Calcium (8.4-10.2) mg/dL Magnesium (1.6-2.3) mg/dL Total Bilirubin (0.2-1.3) mg/dL AST (17-59) IU/L ALT (<50) IU/L Alkaline Phosphatase (38-126) U/L Total Creatine Kinase (55-170) U/L CK-MB (CK-2) (<2.37) ng/mL CK-MB (CK-2) Rel Index (1.5-5.0) % Troponin I (0.01-0.034) ng/mL NT-Pro-B Natriuret Pep (<125) pg/mL Total Protein (6.3-8.2) g/dL Albumin (3.5-5.0) g/dL Globulin (1.7-4.1) g/dL Albumin/Globulin Ratio (1.0-2.8) Lipase (23-300) U/L Serum VDRL Non reactive (Non Reactive) Hepatitis C Antibody Negative (NEGATIVE) s/c HIV 1&2 Ab/P24 Ag 4thGn Negative (NEGATIVE) Discharge Plan Departure Patient Disposition: Home Clinical Impression: Elevated brain natriuretic peptide (BNP) level, Swelling of both lower extremities, Substance abuse, Elevated AST (SGOT), Elevated alanine aminotransferase (ALT) level Instructions: Dehydration, DI for Substance Use Disorder, Heart Failure: Salt and Fluids Activity Restrictions/Additional Instructions: *You have been diagnosed with swelling in your lower extremities likely related to fluid overload and your heart is inability to keep up with either fluid or side effects from substance use. Please practice healthy habits, it appears that you were dehydrated, your electrolytes are within range but these drugs are not doing good things to your body. Please call the number listed below to establish care with a primary care provider, get the soonest available [facility] and bring this paperwork with you. I want you to take 20 mg of Lasix for the next 3 days in the morning, remember to stay hydrated, take a multivitamin, eat healthy foods and return for any new or worsening symptoms. We will call you with your results if they are positive. *What to do: *Please continue to take your regular medications as directed. [ x] New medication prescriptions sent to your pharmacy: [ [facility]] [ ] New medication written as a paper prescription [ ] No new medications given *Please follow up with your primary care provider in 2-3 days, call for an appointment. Let them know you were seen in the Emergency Department and that we asked that you be seen for follow-up. We will electronically transmit a record of today's note if your PCP is in our system *If you do not have a primary care provider please contact [phone] to establish care with one of the [facility] primary care providers. *Return to Emergency Department if you should have any new, worsening, or concerning symptoms, such as [fever greater than 101F, chills, worsening pain, persistent vomiting or other bothersome symptoms]. Prescriptions: New furosemide [Lasix] 20 mg tablet 20 mg PO QAM PRN (Reason: swelling) Qty: 10 0RF No Action ondansetron HCl [Zofran] 4 mg tablet 4 mg PO Q6H PRN (Reason: nausea and vomiting) Qty: 14 0RF Referrals: Tanvi Turner PA-C [Primary Care Provider] - Visit Report Forms: Patient Portal/API <Ayah Velasquez DO - Last Filed: 03/28/22 19:47> Cosign ED Attending Dipika Attestation: I was immediately available in the department for consultation. Documentation has been reviewed.
[2022-03-27 12:53] LABS: Lactate (Lactic Acid) 0.6 mmol/L (0.7-2.1)
[2022-03-27 12:54] LABS: Alanine Aminotransferase 83 IU/L (<50); Albumin 4.3 g/dL (3.5-5.0); Albumin Globulin Ratio 1.7 (1.0-2.8); Alkaline Phosphatase 55 U/L (38-126); Aspartate Aminotransferase 71 IU/L (17-59); BUN Creatinine Ratio 18.5 (6-22); Bilirubin Total 0.4 mg/dL (0.2-1.3); Blood Urea Nitrogen 17 mg/dL (9-20); Calcium 9.1 mg/dL (8.4-10.2); Carbon Dioxide 31 mmol/L (22-32); Chloride 98 mmol/L (98-107); Creatine Kinase 241 U/L (55-170); Estimated Glomerular Filt Rate > 60 mL/min (>60); Globulin 2.5 g/dL (1.7-4.1); Glucose 101 mg/dL (70-100); HEMOLYSIS < 15 (0-50); Lipase 60 U/L (23-300); Magnesium 1.9 mg/dL (1.6-2.3); Sodium 136 mmol/L (137-145); Total Protein 6.8 g/dL (6.3-8.2)
[2022-03-27 13:03] LABS: NT-proBNP (BNP-Adult 18+) 557 pg/mL (<125)
[2022-03-27 13:06] LABS: Troponin I < 0.012 ng/mL (0.01-0.034)
[2022-03-27 13:09] LABS: CKMB % Relative Index 1.8 % (1.5-5.0); Creatine Kinase MB 4.37 ng/mL (<2.37)
--- NOTE | 2022-03-27 13:15 | PC.NURSE ---
Pt with history of meth and cocaine use. reports increased SOB and 1 week of leg swelling. AOx3. Denies CP
[2022-03-27] MEDS: FUROSEMIDE 20 MG TABLET PO (13:35)
[2022-03-27 13:44] VITALS: BP 136/74; PULSE 80; RESP 16; O2SAT 97
--- NOTE | 2022-03-27 13:56 | CM.SWNOTE ---
Patient is a 21 year old male who was admitted to ED on 03/27/22 for Swelling/Meth Use. Pt has M[employer]L VEGA and A[employer]DEE for insurance and his PCP is Tavni Turner at [facility]. EMR was reviewed. Per ED MD, CUSTOMS ENTRY CLERK consult placed due to pt's hx and current MIKAEL. CUSTOMS ENTRY CLERK reviewed past medical hx and pt has been to the ED multiple times in the past couple years for detox/withdrawal from meth and heroin. Pt admits to being sober for a year and recently relapsed on heroin. Per ED RN: Patient reports intermittent ankle swelling since he was 17. Prior history of meth use, clean for 1 year (had a slip up a couple weeks ago). Also reports heroin use since 19 years ago. He has been clean for a year from heroin, but did smoke it a couple days ago. Has some shortness of breath and ankle swelling for one week. Also uses cocaine and states he has concerns for his heart when he has used cocaine. Last used 2-3 months ago. Smokes cigarettes daily. Pt has a hx of [facility] x3 and last known [facility] was in Feb 2020 that father transported him to but he only stayed 24 hours and then returned to the ED at that time. Pt now endorses a significant period of time of sobriety with recent relapse. Pt now currently declines need for CUSTOMS ENTRY CLERK or tx resources as he is aware of the supports and MIKAEL options in the community and ED MD cleared pt for discharge back home. AKANKSHA Xiao
[2022-03-27 17:07] LABS: HIV 1 & 2 Ab/Ag 4th Gen Combo NEGATIVE (NEGATIVE); Hep C Virus Ab w/Reflex Quant NEGATIVE s/c (NEGATIVE)
[2022-03-28 15:42] LABS: RPR Screen Non Reactive (Non Reactive)
[2022-03-28 23:54] LABS: HBsAg Screen Negative (Negative); Hepatitis A Antibody IgM Negative (Negative); Hepatitis B Core Antibody IgM Negative (Negative); Hepatitis C Antibody <0.1 s/co ratio (0.0-0.9)
== END 2022-03-27 13:45 | disposition home or self-care (01) ==
PROVIDERS: Emergency Medicine; Emergency Provider Nurse Practitioner Critical Care Medicine; PCP Physician Assistant
DX: R74.01 Elevation of levels of liver transaminase levels (principal); R79.89 Other specified abnormal findings of blood chemistry; R07.9 Chest pain, unspecified; E86.0 Dehydration; F19.10 Other psychoactive substance abuse, uncomplicated; M79.89 Other specified soft tissue disorders
CPT/HCPCS: 36415; 71045; 80053; 80074; 82550; 82553; 83605; 83690; 83735; 83880; 84484; 85025; 86592; 86803; 87040; 87389; 93005; 99283; 99284